=== PATIENT | male | born 1980 | race Caucasian/White ===

== ENCOUNTER 2017-09-22 22:24 | Emergency (ER) | payer BC ==
[~2017-09-22] VITALS: Ht 175.3 cm; Wt 90.7 kg
[2017-09-22 22:50] VITALS: BP 144/85
== END 2017-09-23 00:28 | disposition home or self-care (01) ==
LOC: ER 22:24
DX: B02.9 Zoster without complications (principal)
CPT/HCPCS: 99283; A4606; Z7610

== ENCOUNTER 2017-12-13 21:50 | Emergency (ER) | payer MEDICAID ==
[~2017-12-13] VITALS: Ht 177.8 cm; Wt 90.7 kg
--- NOTE | 2017-12-13 21:57 | NUR ---
BB FAMILY; FEVER, COUGH, BACK ACHE X 1 WEEK,
--- NOTE | 2017-12-13 22:13 | NUR ---
PT AMBULATORY TO ER BED 6. BIBFAMILY C/O FEVER/COUGH/BACK PAIN X 1 WEEK. PT PLACED ON MANAGER BIOSTATISTICS. VSS/RESP EVEN UNLABORED/NAD NOTED/SKIN WARM AND DRY/AFEBRILE /AOX4. AWAITING MD VALENCIA.
--- NOTE | 2017-12-13 23:42 | NUR ---
Patient discharged to home in stable condition. Written and verbal after care instructions given. Patient verbalizes understanding of instruction. Patient ambulatory with a steady gait.
[2017-12-13 23:43] VITALS: BP 123/71
== END 2017-12-13 23:43 | disposition home or self-care (01) ==
LOC: ER 21:50
DX: J40 Bronchitis, not specified as acute or chronic (principal)
CPT/HCPCS: 71045-TC; A4606; Z7610

== ENCOUNTER 2019-10-17 22:13 | Emergency (ER) | payer MEDICAID ==
[~2019-10-17] VITALS: Ht 175.3 cm; Wt 102.1 kg
--- NOTE | 2019-10-17 22:46 | NUR ---
BIB FOR C/O HIGH BP . ALSO W/ C/O H/A X 10 DAYS. RECEIVED ASA [employer]MG [employer]. STATES HAVING BURNING IN THE EYES, BUT DENIES VISION CHANGES, DIZZINESS. HAS TAKEN ADVIL AT HOME WITHOUT RELIEF. PT IS AOX4, AMB, VSS, RR EVEN AND UNLABORED ON RA. SKIN WARM, DRY, INTACT. NO ACUTE DISTRESS NOTED. ON MONITOR AND READY FOR EVAL.
[2019-10-17] MEDS ORDERED: CLONIDINE HCL 0.1 MG TABLET PO ONE (23:00)
[2019-10-17] MEDS ORDERED: ONDANSETRON 4 MG TAB.RAPDIS SL ONE (23:00)
[2019-10-17] MEDS ORDERED: HYDROCODONE/APAP 10/325MG 1 EA TABLET PO ONE (23:00)
[2019-10-17] MEDS ORDERED: HYDROCODONE/APAP 10/325MG 1 EA TABLET ONE (23:05)
[2019-10-17] MEDS ORDERED: ONDANSETRON 4 MG TAB.RAPDIS ONE (23:06)
[2019-10-18 00:09] LABS: APPEARANCE,URINE Clear (CLEAR); BILIRUBIN,URINE Negative (NEGATIVE); BLOOD, URINE Negative Ery/uL (NEGATIVE); COLOR,URINE Yellow (YELLOW); KETONES,URINE Negative (NEGATIVE); LEUKOCYTE ESTERASE ,URINE Negative (NEGATIVE); NITRITE, URINE Negative (NEGATIVE); PROTEIN,URINE Negative (NEGATIVE); UGLUCOSE Negative (NEGATIVE); UROBILINOGEN,URINE 0.2 EU/dL (0.2)
--- NOTE | 2019-10-18 02:25 | NUR ---
DR FERNANDO AT THE BED SIDE
--- NOTE | 2019-10-18 02:32 | NUR ---
Patient discharged to home in stable condition. Rx and Written and verbal after care instructions given. Patient verbalizes understanding of instruction.
[2019-10-18 02:34] VITALS: BP 118/90
== END 2019-10-18 02:34 | disposition home or self-care (01) ==
LOC: ER 22:14
DX: I10 Essential (primary) hypertension (principal); R51 Headache; Z98.890 Other specified postprocedural states
CPT/HCPCS: 70450; 81001; 93005; 99285; Q0162; 81000-TC